=== PATIENT | male | born 1945 | race Caucasian/White ===

== ENCOUNTER 2017-03-14 10:55 | Emergency (ER) | payer MEDICARE, OTHER ==
--- NOTE | 2017-03-14 11:46 | UC ---
Skin Complaint HPI - HPI Summary HPI Summary: TICK BITE ON RIGHT ARM FIVE DAYS AGO. DEVELOPING SPREADING NONTENDER RASH AROUND TICK SITE SINCE TIME OF TICK BITE. NO JOINT ACHES. NO FEVER. PREVIOUS HISTORY OF CELLULITIS ON LEGS, TREATED WITH KEFLEX, NO HISTORY OF MRSA. - History of Current Complaint Chief Complaint: UCSkin Time Seen by Provider: 03/14/17 11:16 Stated Complaint: RED AREA ON ARM Hx Obtained From: Patient, Family/Trimmer Operator Onset/Duration: Gradual Onset, Lasting Days Skin Exposure Onset/Duration: Days Ago Onset Severity: Mild Current Severity: Moderate Location: Discrete - RIGHT FOREARM Character: Swelling, Redness Aggravating Factor(s): Nothing Alleviating Factor(s): Nothing Associated Signs & Symptoms: Positive: Rash, Red Streaks. Negative: Numbness, Thirst, Diaphoresis, Shivering, Fever, Chills, Cough, Chest Pain, Hoarseness, Throat Tightening, Drainage, Bruising, Tenderness, Joint Swelling Related History: Insect Bite/Sting, Possible Reaction to: Insect - Allergy/Home Medications Allergies/Adverse Reactions: Allergies Allergy/AdvReac Type Severity Reaction Status Date / Time Sulfa Drugs Allergy Severe Tachycardia Verified 03/14/17 11:02 Neomycin Allergy Intermediate Blisters Verified 03/14/17 11:02 Review of Systems Constitutional: Negative Skin: Rash Eyes: Negative ENT: Negative Respiratory: Negative Cardiovascular: Negative Gastrointestinal: Negative Genitourinary: Negative Motor: Negative Neurovascular: Negative Musculoskeletal: Negative Neurological: Negative Psychological: Negative Is Patient Immunocompromised?: No All Other Systems Reviewed And Are Negative: Yes PMH/Surg Hx/FS Hx/Imm Hx Previously Healthy: Yes - Surgical History Surgical History: Yes Surgery Procedure, Year, and Place: 2000 stent, and stone removal [facility] [place]. 2012 KIDNEY STONE, STENT (REMOVED) [facility] [place]. 1949s LEG SURGERY JUSTINE. GALL BLADDER REMOVAL - Family History Known Family History: Negative: Blood Disorder - Social History Occupation: Retired Lives: With Family Alcohol Use: Rare Substance Use Type: None Smoking Status (MU): Former Smoker - Immunization History Most Recent Tetanus Shot: 2011 Physical Exam Triage Information Reviewed: Yes Appearance: Well-Appearing, No Pain Distress, Well-Nourished Vital Signs: Initial Vital Signs Temp 98 F 03/14/17 11:04 Pulse 69 03/14/17 11:04 Resp 16 03/14/17 11:04 Pulse Ox 98 03/14/17 11:04 Vital Signs Reviewed: Yes Eye Exam: Normal ENT Exam: Normal ENT: Positive: Normal ENT inspection Dental Exam: Normal Neck exam: Normal Neck: Positive: Supple, Nontender, No Lymphadenopathy Respiratory Exam: Normal Respiratory: Positive: Chest non-tender, Lungs clear, Normal breath sounds, No respiratory distress, No accessory muscle use Cardiovascular Exam: Normal Cardiovascular: Positive: RRR, No Murmur, Pulses Normal Abdominal Exam: Normal Musculoskeletal Exam: Normal Musculoskeletal: Positive: Strength Intact, ROM Intact, No Edema Neurological Exam: Normal Skin: Positive: rashes - NONTENDER NONPRURITIC ERETHEMA RIGHT ARM SURROUNDING TICK BITE 12 CM X 5CM Course/Dx - Differential Diagnoses - Skin Complaint Differential Diagnoses: Cellulitis, Impetigo, MRSA, Flores-Arias Syndrome, Tick Born Illness, Tinea - Diagnoses Provider Diagnoses: ERYTHEMA MIGRANS RIGHT ARM Discharge - Discharge Plan Condition: Stable Disposition: HOME Prescriptions: DOXYcycline CAP(*) [DOXYcycline 100MG CAP(*)] 100 mg PO BID #[id number] Patient Education Materials: Tick Bite (ED) Referrals: Addy Vidales MD [Primary Care Provider] -
== END 2017-03-14 11:40 | disposition home or self-care (01) ==
LOC: UCEAST 10:55
DX: A26.0 Cutaneous erysipeloid (principal); Z87.891 Personal history of nicotine dependence
CPT/HCPCS: 99212; G0463